=== PATIENT | male | born 1995 | race Asian ===

== ENCOUNTER 2017-10-06 20:46 | Emergency (ER) | payer OTHER ==
[2017-10-06 21:16] VITALS: BP 125/81
[2017-10-06] MEDS ORDERED: Levofloxacin TAB* 500 MG PO ONE (21:45)
[2017-10-06] MEDS ORDERED: Loperamide CAP* 2 MG PO PRN (21:46)
[2017-10-06] MEDS ORDERED: Loperamide CAP* 2 MG ONE (21:50)
--- NOTE | 2017-10-06 22:02 | UC ---
Nausea/Vomiting/Diarrhea HPI - HPI Summary HPI Summary: Patient presents to the with mother with chief complaint of diarrhea 6 days. He stated the diarrhea began early Monday morning at 3 AM. He ate out twice on Monday night but does not recall eating anything abnormal. He endorses normal brown color, but endorses watery stool up to 10 times daily since that time. He was seen at [place] and had given a stool sample. He called today for results and they stated they will not be able to obtain the results until next week on Monday. After he was seen by this physician, he states the diarrhea became worse. Denies any malodorous stools. Denies any nausea, vomiting, or abdominal pain. He states he has intermittent abdominal cramping with the diarrhea. Symptoms are aggravated with nothing and alleviated with nothing. Hasn't been endorsing fevers daily, highest at 100.4 which is relieved with Tylenol. He continues to eat and drink okay and denies any dehydration. This has never happened before, he denies any allergies, denies recent travel or camping trips. While he endorses fevers, he denies any sweats or chills. Denies any antibiotic use or hospital stays. - History of Current Complaint Chief Complaint: GI Stated Complaint: abdominal complaint Time Seen by Provider: 10/06/17 21:20 Hx Obtained From: Patient, Family/Soil Chemist Onset/Duration: Sudden Onset Timing: Constant Severity Initially: Moderate Severity Currently: Moderate Pain Intensity: 3 Pain Scale Used: 0-10 Numeric Aggravating Factor(s): Nothing Alleviating Factor(s): Nothing Nausea/Vomiting Presence: None Diarrhea Presence: Yes Diarrhea Frequency: Every 1-2 hours Diarrhea Duration: 3-7 days Diarrhea Characteristics: Watery - Risk Factors Influenza Risk Factors: Negative Surgical Obstruction Risk Factor(s): Negative - Allergies/Home Medications Allergies/Adverse Reactions: Allergies Allergy/AdvReac Type Severity Reaction Status Date / Time No Known Allergies Allergy Verified 10/06/17 21:16 Home Medications: Home Medications Acetaminophen [Mapap] 1,000 mg PO ONCE PRN 10/06/17 [History Confirmed 10/06/17] Ibuprofen TAB* [Advil TAB*] 200 mg PO ONCE PRN 10/06/17 [History Confirmed 10/06] PMH/Surg Hx/FS Hx/Imm Hx Previously Healthy: Yes - Surgical History Surgical History: Yes Surgery Procedure, Year, and Place: LEFT ANKLE SURGERY FOR "BONE PROBLEM" - Social History Occupation: Unemployed Lives: With Family Alcohol Use: Weekly Substance Use Type: Marijuana Smoking Status (MU): Never Smoked Tobacco Review of Systems Constitutional: Negative Skin: Negative Respiratory: Negative Cardiovascular: Negative Gastrointestinal: Diarrhea Motor: Negative Neurovascular: Negative Musculoskeletal: Negative Psychological: Negative Is Patient Immunocompromised?: No All Other Systems Reviewed And Are Negative: Yes Physical Exam Triage Information Reviewed: Yes Appearance: Well-Appearing, Well-Nourished Vital Signs: Initial Vital Signs Temp 99.4 F 10/06/17 21:10 Pulse 84 10/06/17 21:10 Resp 16 10/06/17 21:10 BP 125/81 10/06/17 21:10 Pulse Ox 97 10/06/17 21:10 Vital Signs Reviewed: Yes Eye Exam: Normal Neck exam: Normal Neck: Positive: Supple, No Lymphadenopathy Respiratory Exam: Normal Respiratory: Positive: Chest non-tender, Lungs clear Cardiovascular Exam: Normal Cardiovascular: Positive: RRR Abdominal Exam: Normal Abdomen Description: Positive: Nontender, No Organomegaly, Soft. Negative: CVA Tenderness (R), CVA Tenderness (L), McBurney's Point Tenderness, Peritoneal Signs, Pulsatile Mass Bowel Sounds: Positive: Hyperactive Musculoskeletal Exam: Normal Musculoskeletal: Positive: Strength Intact Neurological Exam: Normal Neurological: Positive: Alert Psychological: Positive: Normal Response To Family Skin Exam: Normal Naus/Vom/Diarrhea Course/Dx - Course Course Of Treatment: During the course of treatment, the patient is evaluated for profuse diarrhea. Diarrhea is present daily, up to 10 times per day, described as profuse and watery without color or odor. He has not taken anything [id number] for relief. He has not been on antibiotics. He provided a stool sample while at the physician's office at [place] several days ago, but states they would be unable to give him the results until the following Monday. He endorses fevers, up to 100.4 but denies any sweats or chills. He has been otherwise healthy, takes no medications. I've discussed an antibiotic at this time. According to UTD, anything over 7 days and/or accompanied with fevers should be placed prophylactically on antibiotics prior to receiving any results of the stool culture. We will place on Levaquin 500 mg 5 days. His first dose is given in UC. He will also be placed on loperamide 2 mg after each loose stool at this time. He denies any blood in the stool. He is afebrile on arrival and other vital signs are stable. Patient and mother are both okay with this plan and discharge, I have asked him to follow up with the results of his stool culture test on Monday and to make them aware of his recent antibiotic he is being given. Discussed C. difficile, however will not be treated for this as he has not been on antibiotics recently , there is no yellow orange color to the stool and the stool has been malodorous. - Differential Dx/Diagnosis Provider Diagnoses: Diarrhea Condition At Discharge: Stable Discharge - Sign-Out/Discharge Documenting (check all that apply): Discharge/Admit/Transfer - Discharge Plan Condition: Stable Disposition: HOME Prescriptions: Levofloxacin TAB* [Levaquin TAB*] 500 mg PO DAILY #4 tab Loperamide CAP* [Imodium CAP*] 2 mg PO SEE INSTRUCTIONS PRN #10 cap PRN Reason: Diarrhea Patient Education Materials: Loperamide (By mouth), Acute Diarrhea (ED) Referrals: Bhanu Miguel MD [Primary Care Provider] - Additional Instructions: Drink plenty of fluids Call [facility] for stool results on Monday Continue with Levaquin once daily 4 more days Loperamide may be taken after each loose stool until symptoms resolve If you develop any worsening fevers, sweats, chills, co-to the ED immediately if you develop bright yellow or orange color or malodorous stools, co-to the ED immediately - Billing Disposition and Condition Condition: STABLE Disposition: HOME
== END 2017-10-06 22:00 | disposition home or self-care (01) ==
LOC: UCEAST 20:46
DX: R19.7 Diarrhea, unspecified (principal); R50.9 Fever, unspecified; R10.9 Unspecified abdominal pain
CPT/HCPCS: 99202; A9270-GY; G0463